=== PATIENT | female | born 2005 | race Caucasian/White ===

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

== ENCOUNTER 2025-03-04 07:38 | Emergency (ER) | payer OTHER, SELFPAY ==
--- OUTSIDE RECORDS SUMMARY | 2025-03-04 07:41 | XMS_ITS | Clinical Summary ---
Author Organization [facility] [employer] Address [address] [facility] [place] [address] Care Team Providers Care Operations Specialist Name Role Phone Ravi Vera PA-C Unavailable [phone] Aravind Clay MD Primary Care Provider [phone] Source Comments [facility] [employer],non-owned Affiliates and Associated Physician Practices is amultiple site organization consisting of ambulatory clinics and hospital sitesin [place], [place], [place] and [place]. This disclosure is being madepursuant to the Care Everywhere program and may not contain all information available regarding this patient. Last updated 18.[facility] [employer] Allergies No known active allergies Medications * Be aware that medications may not be up to date on this document. Alwaysverify current medications with the patient. sertraline (Zoloft) 100 MG tablet Take 1 (one) tablet by mouth once daily 09/20/2022 Active naproxen (Naprosyn) 500 MG tabletIndicatio ns:Migraine Take 1 (one) tablet by mouth 2 times daily as needed for Pain (3 days per week at most) Reasons: Migraine Headache 24 tablet 1 10/15/2022 Active riboflavin 400 MG capsuleIndicati ons:migraine Take 1 (one) capsule by mouth once daily Reasons: migraine 100 capsule 1 10/15/2022 Active Active Problems Problem Noted Date Diagnosed Date Multiple closed fractures of metatarsal bone of left foot 07/21/2020 Social History Tobacco Use Types Packs/Day Years Used Date Smoking Tobacco: Never Smokeless Tobacco: Never Comments No Sex and Gender Information Value Date Recorded Sex Assigned at Not on file Legal Sex Female 5:45 AM GERIATRIC AIDE Gender Identity Not on file Sexual Orientation Not on file Last Filed Vital Signs Vital Sign Reading Time Taken Comments Blood Pressure 124/84 10/15/2022 11:30 AM GERIATRIC AIDE Pulse 64 08/23/2022 4:57 PM CDT Temperature 37.5 C (99.5 F) 08/23/2022 4:57 PM CDT Respiratory Rate 16 08/23/2022 4:57 PM CDT Oxygen Saturation 100% 08/23/2022 4:57 PM CDT Inhaled Oxygen Concentration - - Weight 75.3 kg (166 lb 0.1 oz) 10/15/20 22 11:30 AM GERIATRIC AIDE Height 159.7 cm (5' 2.87 ) 10/15/2022 1 1:30 AM GERIATRIC AIDE Body Mass Index 29.52 10/15/2022 11:30 AM GERIATRIC AIDE Body Mass Index Percentile 95.01% 10/15 11:30 AM GERIATRIC AIDE Growth Chart: [facility] (Girls, 2- 20 Years) Plan of Treatment Health Maintenance Due Date Last Done Comments HIV SCREENING 2020 HPV VACCINE (1 - 3-dose series) 2020 CHLAMYDIA/GONORRHEA SCREENING 2021 MENINGOCOCCAL (Group B) VACC INE SHARED DECISION-MAKING (1 of 2 - Standard) 2021 HEPATITIS C SCREENING 12/01/2023 COVID-19 VACCINE (1 - 2023-2 5 season) 2024 DEPRESSION SCREENING 11/04/2024 DTAP/TDAP/TD VACCINES (1 - Tdap) 2024 HEPATITIS B VACCINE (1 of 3 - 19+ 3-dose series) 2024 INFLUENZA VACCINE (Season Ended) 2025 08/17/20 15 ZOSTER VACCINE (1 of 2) 2055 HIB VACCINE Aged Out No longer eligi ble based on patient's age to complete this topic MENINGOCOCCAL GROUPS A/C/Y/W VACCINE Aged Out No longer eligible b ased on patient's age to complete this topic PNEUMOCOCCAL VACCINE Aged Out No long er eligible based on patient's age to complete this topic Insurance [facility] [place] [address] Care Teams Operations Specialist Relationship Specialty Start Date End Date Aravind Clay MD [address] [id number] PCP - General Pediatrics 08/04/20 Ravi Vera, PATeC [facility] [place] [address] Orthopedic 07/21/20
--- OUTSIDE RECORDS SUMMARY | 2025-03-04 07:41 | XMS_ITS | Continuity of Care Document ---
Author Organization [facility] Address [address] [place] [address] [address] [place] [address] Phone Care Team Providers Care Customer Sales Representative Name Role Phone Cherelle Loya Unavailable Unavailable Procedures Procedure Date Eye Exam, New Patient Refraction Advance Directives Directive Yes / No Effective Date File Name No Information Encounters Encounter Description Practice Location Reason(s) For Visit Diagnoses Date Provider Providers Copied on Encounter [facility], [address] [place] [address] [address], [place], [place], [id number], [place] tel:[phone] SEC [facility] No Information [address] [facility] , [address], [place], [address], [place]. tel:[phone] Family History Family Member Type Diagnosis Age At Onset No Information Payers Payer name Insurance type Covered republican ID Authoriza tion(s) [facility] [id number] Social History Type Description Quantity Date Captured [...]
[2025-03-04 07:42] VITALS: BP 132/72; PULSE 70; RESP 18; TEMP 36.6; O2SAT 99
[2025-03-04 08:04] LABS: BEDSIDEPREGUCG Negative (Negative)
--- OUTSIDE RECORDS SUMMARY | 2025-03-04 08:09 | XMS_ITS | Continuity of Care Document ---
Author Organization [facility] Address [address] [place] [address] [address] [place] [address] Phone Care Team Providers Care Copper Tapper Name Role Phone Cherelle Loya Unavailable Unavailable Procedures Procedure Date Eye Exam, New Patient Refraction Advance Directives Directive Yes / No Effective Date File Name No Information Encounters Encounter Description Practice Location Reason(s) For Visit Diagnoses Date Provider Providers Copied on Encounter [facility], [address] [place] [address] [address], [place], [place], [id number], [place] tel:[phone] SEC [facility] No Information [address] [facility] , [address], [place], [address], [place]. tel:[phone] Family History Family Member Type Diagnosis Age At Onset No Information Payers Payer name Insurance type Covered democrat ID Authoriza tion(s) Medicaid [facility] [id number] Social History Type Description Quantity Date Captured [...]
--- OUTSIDE RECORDS SUMMARY | 2025-03-04 08:10 | XMS_ITS | Clinical Summary ---
Author Organization [facility] [employer] Address [address] [facility] [place] [address] Care Team Providers Care Die Try Out Worker Name Role Phone Ravi Vera PA-C Unavailable [phone] Aravind Clay MD Primary Care Provider [phone] Source Comments [facility] [employer],non-owned Affiliates and Associated Physician Practices is amultiple site organization consisting of ambulatory clinics and hospital sitesin [place], [place], [place] and [place]. This disclosure is being madepursuant to the Care Everywhere program and may not contain all information available regarding this patient. Last updated 18.[facility] [employer] Allergies No known active allergies Medications * [...] on file Legal Sex Female 5:45 AM MARIONETTE PERFORMER Gender Identity Not on file Sexual Orientation Not on file Last Filed Vital Signs Vital Sign Reading Time Taken Comments Blood Pressure 124/84 10/15/2022 11:30 AM MARIONETTE PERFORMER Pulse 64 08/23/2022 4:57 PM CDT Temperature 37.5 C (99.5 F) 08/23/2022 4:57 PM CDT Respiratory Rate 16 08/23/2022 4:57 PM CDT Oxygen Saturation 100% 08/23/2022 4:57 PM CDT Inhaled Oxygen Concentration - - Weight 75.3 kg (166 lb 0.1 oz) 10/15/20 22 11:30 AM MARIONETTE PERFORMER Height 159.7 cm (5' 2.87 ) 10/15/2022 1 1:30 AM MARIONETTE PERFORMER Body Mass Index 29.52 10/15/2022 11:30 AM MARIONETTE PERFORMER Body Mass Index Percentile 95.01% 10/15 11:30 AM MARIONETTE PERFORMER Growth Chart: [facility] (Girls, 2- 20 Years) Plan of [...] patient's age to complete this topic Insurance [facility] [place] [address] Care Teams Die Try Out Worker Relationship Specialty Start Date End Date Aravind Clay MD [address] [id number] PCP - General Pediatrics 08/04/20 Ravi Vera, PATeC [facility] [place] [address] Orthopedic 07/21/20
[2025-03-04 08:13] LABS: Add Urine Microscopic? YES; Appearance Urine Clear (Clear); Bacteria Urine None Seen /hpf; Bilirubin Urine Negative (Negative); Blood Urine Negative (Negative); Color Urine Dark Yellow (Yellow); Glucose Urine UA Negative (Negative); Ketones Urine Negative (Negative); Leukocyte Esterase Ur 1+ LEU/UL (Negative); Need Manual Microscopic Reviewed; Non Pathogenic Casts 0-2; Protein Urine Negative (Negative); RBC Urine 0-2 /hpf (0-2); Specific Grav Ur 1.021 (1.001-1.035); Squamous Epithelial Cell Urine Moderate /hpf (Few); pH Urine 6.5 (5.0-9.0)
[2025-03-04 08:14] LABS: Nitrate Urine Negative (Negative)
--- NOTE | 2025-03-04 08:35 | ED.GENADULT ---
HPI - General Adult General Chief complaint: Urogenital-Female Stated complaint: I feel I have a UTI Time Seen by Provider: 03/04/25 07:48 History of Present Illness HPI narrative: Patient is a 19-year-old female who presents emergency department chief complaint of urinary frequency patient reports the last 6 days she has been having symptoms reports she tried azo without relief. The patient reports she has had frequent UTIs in the past Related Data Allergies Allergy/AdvReac Type Severity Reaction Status Date / Time No Known Allergies Allergy Verified 03/04/25 07:39 Review of Systems Review of Systems: A 10 system review of systems was completed on the patient and is negative except for what is stated in the HPI. Nursing and ancillary documentation was reviewed. Exam Narrative: GENERAL: Well-appearing, well-nourished, and in no acute distress. HEAD: Normocephalic, atraumatic. EYES: PERRLA and EOMI. ENT: Nares clear, no rhinorrhea or epistaxis. Mucous membranes moist. NECK: Supple. CHEST: Clear to auscultation. No respiratory distress. HEART: Regular rate and rhythm. No murmur heard. Normal peripheral pulses. ABDOMEN: Soft, nontender, nondistended, normal active bowel sounds. EXTREMITIES: Normal range of motion. No edema. SKIN: Warm, dry, no rash. NEURO: No focal deficits. Alert and oriented x3. PSYCH: Normal mood and affect. Course Vital Signs Vital signs: Vital Signs Temperature 36.6 C 03/04/25 07:42 Pulse Rate 70 03/04/25 07:42 Respiratory Rate 18 03/04/25 07:42 Blood Pressure 132/72 03/04/25 07:42 Pulse Oximetry 99 03/04/25 07:42 Oxygen Delivery Room Air 03/04/25 07:42 Temperature 36.6 C 03/04/25 07:42 Pulse Rate 70 03/04/25 07:42 Respiratory Rate 18 03/04/25 07:42 Blood Pressure 132/72 03/04/25 07:42 Pulse Oximetry 99 03/04/25 07:42 Oxygen Delivery Room Air 03/04/25 07:42 Medical Decision Making [facility] Narrative Medical decision making narrative: Differential diagnosis includes UTI, pyelonephritis Patient has no flank tenderness Urinalysis was positive for UTI The patient will be started on cefdinir as her previous culture grew out E coli that was sensitive for ceftriaxone and had intermediate to Unasyn and resistant to Bactrim Vital Signs Vital Signs: Vital Signs Temperature 36.6 C 03/04/25 07:42 Pulse Rate 70 03/04/25 07:42 Respiratory Rate 18 03/04/25 07:42 Blood Pressure 132/72 03/04/25 07:42 Pulse Oximetry 99 03/04/25 07:42 Oxygen Delivery Room Air 03/04/25 07:42 Temperature 36.6 C 03/04/25 07:42 Pulse Rate 70 03/04/25 07:42 Respiratory Rate 18 03/04/25 07:42 Blood Pressure 132/72 03/04/25 07:42 Pulse Oximetry 99 03/04/25 07:42 Oxygen Delivery Room Air 03/04/25 07:42 Lab Data Labs: Lab Results 03/04/25 03/04/25 Range/Units 07:54 08:00 Urine Color Dark yellow (Yellow) Urine Appearance Clear (Clear) Urine pH 6.5 (5.0-9.0) Ur Specific [place] 1.021 (1.001-1.035) Urine Protein Negative (Negative) mg/dL Urine Glucose (UA) Negative (Negative) mg/dL Urine Ketones Negative (Negative) mg/dL Ur Blood (Man) Negative (Negative) Urine Nitrate Negative (Negative) Urine Bilirubin Negative (Negative) Urine Urobilinogen 1.0 (<2.0) mg/dL Add Ur Microanalysis Reviewed Leukocyte Esterase Rfl 1+ H (Negative) PAMELA/UL Urine RBC 0-2 (0-2) /hpf Urine WBC 11-20 H (0-3) /hpf Ur Squamous Epith Cells Moderate (Few) /hpf Urine Bacteria None seen /hpf Urine Casts 0-2 POC Urine HCG, Qual Negative (Negative) Discharge Plan Discharge Clinical Impression: Urinary tract infection Patient Disposition: Home Condition: Stable Instructions: Antibiotic Form, Urinary Tract Infection in Women (ED) Patient Language: Khmer Prescriptions: New cefdinir 300 mg capsule 300 mg PO Q12H 10 Days Qty: 20 0RF metronidazole 500 mg tablet 500 mg PO BID 7 Days Qty: 14 0RF No Action fluconazole 200 mg tablet 200 mg PO DAILY Qty: 2 0RF phenazopyridine [Pyridium] 100 mg tablet 100 mg PO TID PRN (Reason: pain) Qty: 6 0RF cephalexin 500 mg capsule 500 mg PO Q8H 7 Days Qty: 21 0RF Follow-up/Referrals: Nate Ramirez MD [Physician] - UNKNOWN,DOCTOR [Primary Care Provider] - Time of Disposition: 08:43
== END 2025-03-04 08:55 | disposition home or self-care (01) ==
PROVIDERS: Emergency Provider Emergency Medicine
DX: N39.0 Urinary tract infection, site not specified (principal)
CPT/HCPCS: 81001; 81025; 99283

== ENCOUNTER 2025-05-03 02:48 | Emergency (ER) | payer OTHER, SELFPAY ==
[2025-05-03] VITALS (10 sets, daily range): BP systolic 99–117; BP diastolic 42–69; PULSE 74–95; RESP 12–28; TEMP 37.4–37.8; O2SAT 94–100
--- NOTE | 2025-05-03 02:59 | ED.URI ---
HPI - URI/Sore Throat General Chief Complaint: Upper Respiratory Infection Stated Complaint: covid symptoms since tonight Time Seen by Provider: 05/03/25 02:58 Source: patient and other Mode of arrival: ambulatory Limitations: no limitations History of Present Illness HPI Narrative: 19-year-old female presents with upper respiratory infection symptoms. She is visiting her grandfather with hospitalized at [facility]. As part of patient's workup, he was found to have COVID /pneumonia. Patient believe she is having COVID symptoms as well that started acutely tonight at 10:00 p.m.. She has been having headache for the past 2-3 days but then started developing chills and a sore throat watery eyes. Denies any. Denies any underlying respiratory conditions. She does vape nicotine products. She still has her tonsils. Subjective fevers and chills. Related Data Allergies Allergy/AdvReac Type Severity Reaction Status Date / Time No Known Allergies Allergy Verified 05/03/25 03:01 [facility] Past Medical History Medical History No significant medical problems Social History Social History Tobacco type: e-cigarettes/vaping Additional smoking assessment comments: Contains nicotine Exam Narrative: GENERAL: well-nourished, and in no acute distress. HEAD: Normocephalic, atraumatic. EYES: Keeps eyes closed for much of exam however when she does open them, Non injected, non icteric ENT: No epistaxis. Gross auditory acuity intact. No trismus. Posterior oropharyngeal hyperemia. Tonsillar swelling bilaterally, hypertrophic but not kissing. NECK: Supple. No meningismus. Cervical lymphadenopathy. CHEST: Speaking in full sentences. No respiratory distress. Lungs clear to auscultation bilaterally HEART: Regular rate and rhythm. . ABDOMEN: Soft, nondistended. EXTREMITIES: Normal range of motion. No lower extremity edema. SKIN: Warm, dry, no rash. NEURO: No focal deficits. Alert and oriented. Answering questions. Following commands. Normal speech without aphasia or dysarthria. No dysphonia PSYCH: Normal mood and affect. Course Vital Signs Vital signs: Vital Signs Temperature 100.0 F H 05/03/25 03:00 Pulse Rate 76 05/03/25 03:00 Respiratory Rate 20 05/03/25 03:00 Blood Pressure 117/65 05/03/25 03:00 Pulse Oximetry 99 05/03/25 03:00 Oxygen Delivery Room Air 05/03/25 03:00 Temperature 99.4 F 05/03/25 04:15 Pulse Rate 78 05/03/25 04:15 Respiratory Rate 20 05/03/25 04:15 Blood Pressure 99/69 L 05/03/25 04:01 Pulse Oximetry 98 05/03/25 04:15 Oxygen Delivery Room Air 05/03/25 03:11 MDM - URI/Sore Throat MDM Narrative Medical decision making narrative: Patient presents with upper respiratory infections symptoms. States she has a had a headache for the past 2-3 days but that acutely started developing symptoms approximately 10:00 p.m. including chills, sore throat, watery eyes. Has been visiting her grandfather with hospitalized here with COVID pneumonia and concerned she has the same. In the emergency department she has a low-grade temperature but otherwise with appropriate vital signs. Centor Score - estimates probability that pharyngitis is streptococcal and suggests mgmt Age (3-14 years = +1, 15-44 years = 0, >45 years = -1): 0 Exudate or tonsillar swelling (No 0, Yes +1): 1 Anterior cervical lymphadenopathy (No 0, Yes +1): 1 Temp > 38C (No 0, Yes +1): 0 Cough (present 0 , absent +1): 1 3 points = 28-35% probability of Strep pharyngitis; consider rapid strep testing and/or culture They are given a one-time dose of 0.6mg/kg PO (Max 10mg) dexamethasone as this has been shown to decrease the time to pain relief. Viral swab negative. She does test positive for strep. They are given a 10-day course of penicillin V potassium 500mg BID x10 days and educated on the importance of taking the entire duration to reduce risk of complication (scarlet fever, rheumatic fever, abscess, mastoiditis). She and friend verify understanding. Disposition: The patient was discharged home in stable condition. The patient will follow up with their PCP . They are given strict return precautions that include S/S of glomerulonephritis (foamy urine, edema) as well as other new/unmanaged/worsened symptoms. She and friend verify understanding. She was also provided prescriptions for [id number] analgesics medications Differential Diagnosis Differential diagnosis: Likely upper respiratory infection, viral infection, influenza and pharyngitis Lab Data Attestation: I reviewed the patient's lab results. Labs: Lab Results 05/03/25 05/03/25 Range/Units 03:04 03:19 Influenza A (RT-PCR) Negative (Negative) Influenza B (RT-PCR) Negative (Negative) RSV (RT-PCR) Negative (Negative) SARS-CoV-2 RNA (RT-PCR) Negative (Negative) Group A Strep (PCR) Detected A (Negative) Discharge Plan Discharge Clinical Impression: Strep pharyngitis Patient Disposition: Home Condition: Stable Instructions: Antibiotic Form, Strep Throat (DC) Additional Instructions: Acetaminophen/Tylenol (maximum 4000 mg per day) is safe to take with NSAIDs (ibuprofen/Motrin) for pain relief and fever. For strep throat, you received your 1st dose of antibiotic in the emergency department the rest of the course has been prescribed. It is important to take this entire course even if you are feeling better after few days to reduce the chance of rare but serious complications such as scarlet fever, rheumatic fever, abscess, mastoiditis. Follow-up with primary care physician. If you do not have 1 and are in the area, the name of the doctors listed below. Return to the emergency department with any new or worsening symptoms including the rare but serious once we talked about such as edema (significant swelling around the eyes or in the legs) or foamy urine. Rest and maintain your hydration. Patient Language: Vietnamese Prescriptions: New penicillin V potassium 500 mg tablet 500 mg PO Q12H 10 Days Qty: 19 0RF Rx Instructions: received first dose in the ED 6/30 AM ibuprofen 600 mg tablet 600 mg PO TID PRN (Reason: pain) Qty: 30 0RF acetaminophen 500 mg capsule 1,000 mg PO Q6H PRN (Reason: pain) Qty: 30 0RF No Action cefdinir 300 mg capsule 300 mg PO Q12H 10 Days Qty: 20 0RF metronidazole 500 mg tablet 500 mg PO BID 7 Days Qty: 14 0RF fluconazole 200 mg tablet 200 mg PO DAILY Qty: 2 0RF phenazopyridine [Pyridium] 100 mg tablet 100 mg PO TID PRN (Reason: pain) Qty: 6 0RF cephalexin 500 mg capsule 500 mg PO Q8H 7 Days Qty: 21 0RF Follow-up/Referrals: Jorge Luis Carroll MD [Physician] - UNKNOWN,DOCTOR [Non-Staff] - Stand Alone Forms: Work/School Release IP Time of Disposition: 04:25
[2025-05-03] MEDS: dexAMETHasone 2 MG TABLET 10 MG PO (03:19)
[2025-05-03] MEDS: ACETAMINOPHEN 500 MG TABLET 1000 MG PO (03:19)
[2025-05-03 03:45] LABS: Influenza A QL RT-PCR Negative (Negative); Influenza B QL RT-PCR Negative (Negative); RSV RNA, RT-PCR. Negative (Negative); SARS-CoV-2 RNA PCR Negative (Negative)
[2025-05-03 03:52] LABS: Strep Group A RT-PCR DETECTED (Negative)
[2025-05-03] MEDS: PENICILLIN V POTASSIUM 250 MG TABLET 500 MG PO (04:29)
== END 2025-05-03 04:35 | disposition home or self-care (01) ==
PROVIDERS: Emergency Provider Student in an Organized Health Care Education/Training Program
DX: J02.0 Streptococcal pharyngitis (principal); F17.290 Nicotine dependence, other tobacco product, uncomplicated; Z20.822 Contact with and (suspected) exposure to COVID-19
CPT/HCPCS: 87637; 87651; 99283; A9270; J8540

== ENCOUNTER 2025-07-07 17:10 | Emergency (ER) | payer OTHER, SELFPAY ==
--- OUTSIDE RECORDS SUMMARY | 2009-11-03 05:15 | XMS_ITS | Continuity of Care Document ---
Author Organization [facility] Address [address] [place] [address] [address] [place] [address] Phone Care Team Providers Care Drug Safety Associate Name Role Phone Cherelle Loya Unavailable Unavailable Procedures Procedure Date Eye Exam, New Patient Refraction Advance Directives Directive Yes / No Effective Date File Name No Information Encounters Encounter Description Practice Location Reason(s) For Visit Diagnoses Date Provider Providers Copied on Encounter Merged with [facility], [id number] [place] [address] [address], [place], [place], [id number], [place] tel:[phone] SEC [facility] No Information [address]arreal. [address] [facility] , [address], [place], [address], [place]. tel:[phone] Family History Family Member Type Diagnosis Age At Onset No Information Payers Payer name Insurance type Covered libertarian ID Authoriza tijesus(s) Medicaid [facility] [id number] Social History Type Description Quantity Date Captured Comments Sex Female Smoking Status No Information Chief Complaint And Reason For Visit No Information Reason For Referral Reason For Referral No Information History Of Present Illness Encounter Date Complaint History Of Prese nt Illness No Information Functional Status Date Functional Assessmen t No Information Instructions Date Instruction Additional Infor mation No Information Assessments Type Assessment Date No Information Patient Care Teams Name Effective Dates (start - stop) Status Members No Information
[2025-07-07 17:11] VITALS: BP 131/59; PULSE 64; RESP 16; TEMP 36.8; O2SAT 100
--- OUTSIDE RECORDS SUMMARY | 2025-07-07 17:21 | XMS_ITS | Clinical Summary ---
Author Organization [facility] Address [address] [place] [address] Care Team Providers Care Distribution Systems Superintendent Name Role Phone Ravi Vera PA-C Unavailable [phone] Aravind Clay MD Primary Care Provider [phone] Source Comments [facility],non-owned Affiliates and Associated Physician Practices is amultiple site organization consisting of ambulatory clinics and hospital sitesin [place], [place], [place] and [place]. This disclosure is being madepursuant to the Care Everywhere program and may not contain all information available regarding this patient. Last updated 18.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 TRUCK DRIVER Height 159.7 cm (5' 2.87) 10/15/2022 1 1:30 AM READY MIX TRUCK DRIVER Body Mass Index 29.52 10/15/2022 11:30 AM READY MIX TRUCK DRIVER Body Mass Index Percentile 95.01% 10/15 11:30 AM READY MIX TRUCK DRIVER Growth Chart: CDC (Girls, 2- 20 Years) Plan of Treatment Health Maintenance Due Date Last Done Comments HIV SCREENING 2020 HPV VACCINE (1 - 3-dose series) 2020 CHLAMYDIA/GONORRHEA SCREENING 2021 MENINGOCOCCAL (Group B) VACC INE SHARED DECISION-MAKING (1 of 2 - Standard) 2021 HEPATITIS C SCREENING 12/01/2023 DEPRESSION SCREENING 11/04/2024 DTAP/TDAP/TD VACCINES (1 - Tdap) 2024 HEPATITIS B VACCINE (1 of 3 - 19+ 3-dose series) 2024 COVID-19 VACCINE (1 - 2023-2 5 season) 2025 INFLUENZA VACCINE (#1) 2025 08/17/2015 ZOSTER VACCINE (1 of 2) 2055 HIB VACCINE Aged Out No longer eligi ble based on patient's age to complete this topic MENINGOCOCCAL GROUPS A/C/Y/W VACCINE Aged Out No longer eligible b ased on patient's age to complete this topic PNEUMOCOCCAL VACCINE Aged Out No long er eligible based on patient's age to complete this topic Insurance Care Teams Distribution Systems Superintendent Relationship Specialty Start Date End Date Aravind Clay MD [facility] [place] [address] PCP - General Pediatrics 08/04/20 Ravi Vera, PATeC [address] [place] [address] Orthopedic 07/21/20
--- OUTSIDE RECORDS SUMMARY | 2025-07-07 18:24 | XMS_ITS | Clinical Summary ---
Author Organization [facility] Address [address] [place] [address] Care Team Providers Care Flute Grinder Name Role Phone Ravi Vera PA-C Unavailable [phone] Aravind Clay MD Primary Care Provider [phone] Source Comments [facility],non-owned Affiliates and Associated Physician Practices is amultiple site organization consisting of ambulatory clinics and hospital sitesin [place], [place], [place] and [place]. This disclosure is being madepursuant to the Care Everywhere program and may not contain all information available regarding this patient. 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 Gender Identity Not on file Sexual Orientation Not on file Last Filed Vital Signs Vital Sign Reading Time Taken Comments Blood Pressure 124/84 10/15/2022 11:30 AM SYSTEMS PROGRAMMER Pulse 64 08/23/2022 4:57 PM CDT Temperature 37.5 C (99.5 F) 08/23/2022 4:57 PM CDT Respiratory Rate 16 08/23/2022 4:57 PM CDT Oxygen Saturation 100% 08/23/2022 4:57 PM CDT Inhaled Oxygen Concentration - - Weight 75.3 kg (166 lb 0.1 oz) 10/15/20 11:30 AM SYSTEMS PROGRAMMER Height 159.7 cm (5' 2.87) 10/15/2022 1 1:30 AM SYSTEMS PROGRAMMER Body Mass Index 29.52 10/15/2022 11:30 AM SYSTEMS PROGRAMMER Body Mass Index Percentile 95.01% 10/15 11:30 AM SYSTEMS PROGRAMMER Growth Chart: CDC (Girls, 2- 20 Years) [...] to complete this topic Insurance Care Teams Flute Grinder Relationship Specialty Start Date End Date Aravind Clay MD [facility] [place] [address] PCP - General Pediatrics 08/04/20 Ravi Vera, PATeC [address] [place] [address] Orthopedic 07/21/20
--- NOTE | 2025-07-07 19:51 | ED_ITS ---
HPI - General Adult General Chief complaint: Eye Problems Stated complaint: vape juice in eye Time Seen by Provider: 07/07/25 17:54 History of Present Illness HPI narrative: This is a 19-year-old female presenting ED with vape juice in her eye. Seven earlier today. The patient had some initial irritation but then flushed it out in the sink for quite some time. Her vision is now improved. She does not have significant irritation. No visual changes. No other complaints. Related Data Allergies Allergy/AdvReac Type Severity Reaction Status Date / Time No Known Allergies Allergy Verified 05/03/25 03:01 [facility] Past Medical History Medical History No significant medical problems Social History Social History Tobacco type: e-cigarettes/vaping Additional smoking assessment comments: Contains nicotine Exam Narrative: APPEARANCE: No apparent distress. Head: atraumatic. EYES: No carrington or abrasions corneal stain. Visual acuity is normal NOSE: Atraumatic NECK: Trachea midline RESPIRATORY: No increased rate of breathing CARDIOVASCULAR: RRR, ABDOMINAL: Non-distended MUSCULOSKELETAl: No obvious deformities NEURO: Alert. Moving 4/4 extremities SKIN:: Warm, dry. Normal color PSYCHIATRIC: Normal affect Course Vital Signs Vital signs: Vital Signs Temperature 98.2 F 07/07/25 17:11 Pulse Rate 64 07/07/25 17:11 Respiratory Rate 16 07/07/25 17:11 Blood Pressure 131/59 L 07/07/25 17:11 Pulse Oximetry 100 07/07/25 17:11 Temperature 98.2 F 07/07/25 17:11 Pulse Rate 64 07/07/25 17:11 Respiratory Rate 16 07/07/25 17:11 Blood Pressure 131/59 L 07/07/25 17:11 Pulse Oximetry 100 07/07/25 17:11 Medical Decision Making [facility] Narrative Medical decision making narrative: -Course: 19-year-old female presenting with eye irritation after vape fuel exposure. Patient already had rinsed her eye out before arrival. Here she has minimal complaints. Visual acuity is normal. Fluorescein stain is negative. Patient's eye was irrigated again. She will be discharged with ophthalmology follow-up. -DDX includes but is not limited to: Corneal irritation, abrasion Vital Signs Vital Signs: Vital Signs Temperature 98.2 F 07/07/25 17:11 Pulse Rate 64 07/07/25 17:11 Respiratory Rate 16 07/07/25 17:11 Blood Pressure 131/59 L 07/07/25 17:11 Pulse Oximetry 100 07/07/25 17:11 Temperature 98.2 F 07/07/25 17:11 Pulse Rate 64 07/07/25 17:11 Respiratory Rate 16 07/07/25 17:11 Blood Pressure 131/59 L 07/07/25 17:11 Pulse Oximetry 100 07/07/25 17:11 Discharge Plan Discharge Clinical Impression: Corneal irritation of left eye Patient Disposition: Home Condition: Stable Instructions: Antibiotic Form, Eye Pain (ED) Additional Instructions: You were seen in the emergency department after your eye was exposed to vape fuel. Please arrange f/u in 24-48 hrs with Ophthalmology. If you do not have an healthcare management consultant call [employer] at [phone]. If you develop visual changes or severe eye pain return to the ED immediately. Patient Language: Cape Verdean Prescriptions: No Action cefdinir 300 mg capsule 300 mg PO Q12H 10 Days Qty: 20 0RF metronidazole 500 mg tablet 500 mg PO BID 7 Days Qty: 14 0RF penicillin V potassium 500 mg tablet 500 mg PO Q12H 10 Days Qty: 19 0RF Rx Instructions: received first dose in the ED 6/30 AM ibuprofen 600 mg tablet 600 mg PO TID PRN (Reason: pain) Qty: 30 0RF acetaminophen 500 mg capsule 1,000 mg PO Q6H PRN (Reason: pain) Qty: 30 0RF fluconazole 200 mg tablet 200 mg PO DAILY Qty: 2 0RF phenazopyridine [Pyridium] 100 mg tablet 100 mg PO TID PRN (Reason: pain) Qty: 6 0RF cephalexin 500 mg capsule 500 mg PO Q8H 7 Days Qty: 21 0RF Follow-up/Referrals: PHYSICIAN,AUTOMOBILE DAMAGE APPRAISER [Primary Care Provider, Internal Medicine]
[2025-07-07 20:16] VITALS: BP 124/85; PULSE 85; RESP 20; TEMP 36.5; O2SAT 98
== END 2025-07-07 20:18 | disposition home or self-care (01) ==
PROVIDERS: Emergency Provider Emergency Medicine
DX: H57.89 Other specified disorders of eye and adnexa (principal); F17.290 Nicotine dependence, other tobacco product, uncomplicated
CPT/HCPCS: 99283